=== PATIENT | male | born 1940 | race Caucasian/White ===

== ENCOUNTER 2018-02-06 10:40 | Day surgery (SDC) | payer MEDICARE, OTHER ==
[~2018-02-06] VITALS: Ht 177.8 cm; Wt 79.3 kg
[~2018-02-06 10:40] MED LIST: ACID REDUCER20 MG PO; ASPI81EC; ATOR20 PO; ATOR40TA; Aspirin EC81 MG PO; CLOP75; DOCU100 PO; HYDACE5 PO; LEVSOD75 PO; LISI5 PO; LOW DOSE ASPIRI81 MG PO; METO25; METO25ER; METO50; NAPR550 PO; NITR.4SL SL; PRED10 PO
== END 2018-02-06 12:45 | disposition home or self-care (01) ==
LOC: ORSCSDS 10:40
PROVIDERS: Internal Medicine Gastroenterology
PROC: 0DJ08ZZ Inspection of Upper Intestinal Tract, Via Natural or Artificial Opening Endoscopic (ICD-10-PCS; principal; 2018-02-06 12:00)
DX: R12 Heartburn (principal); K44.9 Diaphragmatic hernia without obstruction or gangrene; Z99.81 Dependence on supplemental oxygen; I25.2 Old myocardial infarction; I10 Essential (primary) hypertension; I25.10 Atherosclerotic heart disease of native coronary artery without angina pectoris; J84.9 Interstitial pulmonary disease, unspecified; Z87.891 Personal history of nicotine dependence; Z79.82 Long term (current) use of aspirin; Z79.899 Other long term (current) drug therapy
CPT/HCPCS: J2250; J7120

== ENCOUNTER → 2019-04-04 | Outpatient (CLI) | payer MEDICARE, OTHER | END | disposition home or self-care (01) | LOC: LAB SHORT 07:44 → PLD 07:44 | DX: L90.5 Scar conditions and fibrosis of skin (principal) | CPT/HCPCS: 88305 ==

== ENCOUNTER 2019-06-17 10:59 | Inpatient (IN) | payer OTHER, MEDICARE ==
[~2019-06-17] VITALS: Ht 177.8 cm; Wt 71.7 kg
[2019-06-17] MEDS ORDERED: GABAPENTIN600 MG PO (11:08)
[2019-06-17] MEDS ORDERED: OMEP20ER PO (11:08)
[2019-06-17] MEDS ORDERED: Mobic15 MG PO (11:09)
[2019-06-17] MEDS ORDERED: Bentyl20 MG (11:09)
[2019-06-17] MEDS ORDERED: EUTHYROX100 MC1 PO (11:09)
[2019-06-17 11:25] LABS: BASOPHILS ABSOLUTE AUTO 0.01 K/mm3 (0.00-0.23); BASOPHILS PERCENT AUTO 0 % (0-2); EOSINOPHILS ABSOLUTE AUTO 0.16 K/mm3 (0.00-0.68); EOSINOPHILS PERCENT AUTO 4 % (0-6); Hematocrit 29.4 % (37.0-53.0); Hemoglobin 8.9 g/dL (13.5-17.5); IMMATURE GRAN ABSOLUTE AUTO 0.02 K/mm3 (0.00-0.10); IMMATURE GRAN PERCENT AUTO 0 % (0-1); LYMPHOCYTES PERCENT AUTO 27 % (21-46); MONOCYTES ABSOLUTE AUTO 0.65 K/mm3 (0.16-1.47); MONOCYTES PERCENT AUTO 14 % (4-13); Mean Corpuscular HGB 31.1 pg (26.0-34.0); Mean Corpuscular HGB Conc 30.3 g/dL (31.5-36.5); Mean Corpuscular Volume 103 fL (80-100); Mean Platelet Volume 10.1 fL (9.1-12.4); NEUTROPHILS ABSOLUTE AUTO 2.47 K/mm3 (1.96-9.15); NEUTROPHILS PERCENT AUTO 55 % (41-73); Platelet Count 132 K/mm3 (150-400); RDW Coefficient Variation 15.5 % (11.7-14.2); Red Blood Cell Count 2.86 M/mm3 (4.30-5.90); White Blood Cell Count 4.51 K/mm3 (4.00-11.30)
[2019-06-17 11:43] LABS: Albumin, Blood 2.3 g/dL (3.4-5.0); Albumin/Globulin Ratio 0.4 (0.8-1.8); Bilirubin, Total 0.7 mg/dL (0.1-1.0); Bun/Creatinine Ratio 14.8 (12.0-20.0); Creatinine, Blood 1.35 mg/dL (0.60-1.20); Globulin, Blood 6.4 g/dL (2.2-4.0); Potassium, Blood 3.7 mmol/L (3.5-5.5); Total Protein, Blood 8.7 g/dL (6.4-8.2); Troponin I 0.208 ng/mL (0.000-0.040)
[2019-06-17 13:44] LABS: Percent Saturation 19.2 % (20.0-50.0)
--- NOTE | 2019-06-17 13:55 | NUR ---
REPORT RECEIVED FROM ANAHY BROWNING.
--- NOTE | 2019-06-17 14:07 | NUR ---
NOTIFIED BY MACHINE LACER THAT PT IS GOING TO BE TAKEN CARE OF BY ANAHY BERNARDO. DISCUSSED WITH TOVA. TOVA TO CALL ER NURSE FOR REPORT.
--- NOTE | 2019-06-17 18:13 | NUR ---
AMIODORONE PO CONFIRMED WITH PHARMACY THAT AMIODORONE PILLS ARE CRUSHABLE. CONTINUE POT.
--- NOTE | 2019-06-17 18:45 | NUR ---
HIGH HEART RATE PT DEVEOPED A HEART RATE 140 BPM. AFIB NOTED ON TELEL MONITOR. PT SITTING ONT HE SIDE OF THE BED EATING DINNER. ASYMPTOMATIC. BP STABLE. NO DIZZINESS NOTED. CALLED DR LAW. ORDERS RECEIVED. CONTINUE POT.
--- NOTE | 2019-06-17 21:50 | NUR ---
CARE ASSUMPTION / CONVERT TO NSR PT A&O X4. VSS. PT CONVERTED FROM AFIB TO NSR, HR 70's @ 1931. CONVERSION STRIP PRINTED AND PLACED IN CHART. SPO2 > 92% ON RA. WILL CONTINUE TO MONITOR AND PROVIDE CARE.
[2019-06-18 00:09] LABS: Stool Occult Blood Guaiac 1 Neg (Neg)
--- NOTE | 2019-06-18 06:25 | NUR ---
SHIFT SUMMARY PT A&O X4. VSS. PT CONVERTED FROM AFIB TO NSR, HR 70's @ 1931 THIS SHIFT. SPO2 > 92% ON RA. NO FURTHER EVENTS/CHANGES THIS SHIFT. EKG DONE THIS AM. WILL CONTINUE TO MONITOR AND PROVIDE CARE UNTIL REPORT OFF TO DAY SHIFT RN.
[2019-06-18 07:56] LABS: BASOPHILS ABSOLUTE AUTO 0.02 K/mm3 (0.00-0.23); BASOPHILS PERCENT AUTO 1 % (0-2); EOSINOPHILS ABSOLUTE AUTO 0.11 K/mm3 (0.00-0.68); EOSINOPHILS PERCENT AUTO 3 % (0-6); Hematocrit 26.4 % (37.0-53.0); IMMATURE GRAN ABSOLUTE AUTO 0.02 K/mm3 (0.00-0.10); IMMATURE GRAN PERCENT AUTO 1 % (0-1); LYMPHOCYTES ABSOLUTE AUTO 0.92 K/mm3 (0.84-5.20); LYMPHOCYTES PERCENT AUTO 29 % (21-46); MONOCYTES ABSOLUTE AUTO 0.64 K/mm3 (0.16-1.47); MONOCYTES PERCENT AUTO 20 % (4-13); Mean Corpuscular HGB 31.1 pg (26.0-34.0); Mean Corpuscular HGB Conc 30.3 g/dL (31.5-36.5); Mean Corpuscular Volume 103 fL (80-100); Mean Platelet Volume 10.2 fL (9.1-12.4); NEUTROPHILS ABSOLUTE AUTO 1.49 K/mm3 (1.96-9.15); NEUTROPHILS PERCENT AUTO 47 % (41-73); Platelet Count 132 K/mm3 (150-400); RDW Coefficient Variation 15.6 % (11.7-14.2); RDW Standard Deviation 57.4 fL (35.1-46.3); Red Blood Cell Count 2.57 M/mm3 (4.30-5.90)
--- NOTE | 2019-06-18 08:03 | NUR ---
REPORT REC'D FROM PAULO HIGGINBOTHAM. PT LYING IN BED A&O. DENIES ANY NEEDS AT THIS TIME. COFFEE PROVIDED REQUESTED EARLIER 07/04 DECAF 07/04 REG. VSS. ASSESSMENT NOTED CALL LIGHT IN REACH.
[2019-06-18 08:09] LABS: Albumin, Blood 2.2 g/dL (3.4-5.0); Anion Gap 8 mmol/L (6-16); Blood Urea Nitrogen 26 mg/dL (8-24); Bun/Creatinine Ratio 14.7 (12.0-20.0); CO2, Blood 23 mmol/L (21-32); Chloride, Blood 106 mmol/L (98-108); Creatinine, Blood 1.77 mg/dL (0.60-1.20); Glomerular Filtration Rate 40 (60-); Glucose, Blood 97 mg/dL (70-99); Phosphorus, Blood 3.3 mg/dL (2.5-4.9); Potassium, Blood 3.8 mmol/L (3.5-5.5); Sodium, Blood 137 mmol/L (136-145)
--- NOTE | 2019-06-18 14:41 | NUR ---
REPORT CALLED TO TR HIGGINBOTHAM ON MEDICAL FLOOR. PT TRANSFERRING TO [facility] 355 VIA .
--- NOTE | 2019-06-18 16:14 | NUR ---
Spiritual care visit conducted. Patient is sitting on a chair and alert. Patient openly shares about his medical history, his family and then he shares the pain of the loss of his a few months ago. He then told me many stories of how they met and what she was like and about the loss of motivation to continue on without her. We talk about celebrating her life, about finding meaning and identity and looking for ways to re-engage in life. I listen empathically, reinforce helpful attitudes and practices and provide grief support, companionship and prayer. Patient responds well and shows signs of an elevated mood. I will continue to remain available to patient.
--- NOTE | 2019-06-18 17:56 | NUR ---
RECEIVED TO ROOM 355 BY W/C FROM [facility] AT 1448. TELE ON. WHEN VERIFIED WITH THE AIR POLLUTION COMPLIANCE INSPECTOR, READING NSR 72. HE IS UP AD GIBRAN IN THE ROOM. HE DOES NOT WANT TO JUST SIT ON THE BED. HE SAYS HIS APPETITE IS POOR. CONSULTED WITH HIM. HE HAS TURNED DOWN ANY ENDOSCOPIES AT THIS TIME. HIS NEIGHBOR AND HER SON BROUGHT HIM IN HIS CLOTHING AND IS LOOKING AFTER HIS HOUSE AND HIS DOG FOR HIM. HE HAS NO COMPLAINTS.
[2019-06-19 04:40] LABS: BASOPHILS ABSOLUTE AUTO 0.02 K/mm3 (0.00-0.23); BASOPHILS PERCENT AUTO 0 % (0-2); EOSINOPHILS ABSOLUTE AUTO 0.14 K/mm3 (0.00-0.68); EOSINOPHILS PERCENT AUTO 3 % (0-6); Hematocrit 25.3 % (37.0-53.0); IMMATURE GRAN ABSOLUTE AUTO 0.02 K/mm3 (0.00-0.10); IMMATURE GRAN PERCENT AUTO 0 % (0-1); LYMPHOCYTES ABSOLUTE AUTO 1.23 K/mm3 (0.84-5.20); LYMPHOCYTES PERCENT AUTO 27 % (21-46); MONOCYTES ABSOLUTE AUTO 0.76 K/mm3 (0.16-1.47); MONOCYTES PERCENT AUTO 17 % (4-13); Mean Corpuscular HGB Conc 31.6 g/dL (31.5-36.5); Mean Platelet Volume 9.8 fL (9.1-12.4); NEUTROPHILS ABSOLUTE AUTO 2.41 K/mm3 (1.96-9.15); NEUTROPHILS PERCENT AUTO 53 % (41-73); Platelet Count 147 K/mm3 (150-400); RDW Coefficient Variation 15.4 % (11.7-14.2); RDW Standard Deviation 54.6 fL (35.1-46.3); Red Blood Cell Count 2.58 M/mm3 (4.30-5.90); White Blood Cell Count 4.58 K/mm3 (4.00-11.30)
[2019-06-19 04:42] LABS: Mean Corpuscular Volume 98 fL (80-100)
[2019-06-19 04:58] LABS: Bun/Creatinine Ratio 15.8 (12.0-20.0); Calcium, Blood 7.8 mg/dL (8.5-10.1); Creatinine, Blood 1.96 mg/dL (0.60-1.20); Magnesium, Blood 1.5 mg/dL (1.6-2.4); Potassium, Blood 4.9 mmol/L (3.5-5.5)
--- NOTE | 2019-06-19 05:01 | NUR ---
SHIFT SUMMARY: PT IS ALERT AND ORIENTED. PT IS CALM AND COOPERATIVE WITH CARE. PT CALLS APPROPRIATELY. PT IS INDEPENDENT IN THE ROOM. PT DENIES PAIN, NAUSEA, VOMITING, AND SOB. PT SLEPT MUCH OF THE NIGHT WHEN NOT DISTURBED. NSR ON TELE. NO ACUTE CHANGES OR COMPLICATIONS THIS SHIFT. BED IN LOW POSITION, CALL LIGHT WITHIN REACH. WILL REPORT TO DAY NURSE.
--- NOTE | 2019-06-19 16:07 | NUR ---
PT STARTED BOWEL PREP
--- NOTE | 2019-06-19 17:04 | NUR ---
SUMMARY PT RESTING IN BED WATCHING TV, HAS BEEN PLEASANT AND COOPERATIVE WITH CARE, DR MICHEL SAW THE PT FIRST THING THIS MORNING, AND PLAN IS TO SCOPE THE PT TOMORROW AFTER NOON, PT TAKING BOWEL PREP NOW AND IS ON CLEAR LIQUIDS, VSS, NO ACUTE CHANGES, WILL CONT TO MONITOR
--- NOTE | 2019-06-19 18:22 | NUR ---
TELE NOTIFIED ME THE PT IS BACK IN AFIB, 100'S, PT DENIES ANY CHEST PAIN OR PRESSURE
[2019-06-20 05:20] LABS: Source, Urine Clean Catch
[2019-06-20 05:24] LABS: Appearance, Urine Clear (Clear); Bilirubin, Urine Neg (Neg); Blood, Urine 5+ (Neg); Color, Urine Yellow (P-Yellow); Glucose Qualitative, Urine Neg (Neg); Ketones, Urine Neg (Neg); Leukocyte Esterase, Urine Neg (Neg); Nitrite, Urine Neg (Neg); Protein, Urine 2+ (Neg); Urobilinogen, Urine NORM (Normal)
[2019-06-20 05:39] LABS: Bacteria Rare /hpf; Red Blood Cells, Urine 25-50 /hpf (0-2); Squamous Epithelial Cells Not Seen /hpf (Few)
--- NOTE | 2019-06-20 06:41 | NUR ---
SHIFT SUMMARY: 79 Y/O MALE RESTED COMFORTABLY ALL SHIFT WHILE PERFORMING BOWEL PREP WITH LIQUID BROWN STOOL NOTED; PT HAS RESUMED TAKING GO-LYTE THIS AM; PT DENIES PAIN OR NAUSEA; ALERT AND ORIENTED X 4; HAPPY AND COOPERATIVE; SCHEDULED TENTATIVELY FOR COLONOSCOPY TODAY; BED LOW POSITION WITH CALL LIGHT AT SIDE.
--- NOTE | 2019-06-20 15:20 | NUR ---
PT BROUGHT TO [facility] VIA GURNEY FROM MEDICAL FLOOR ROOM. History, Chart, Medications and Allergies reviewed before start of procedure.Patient confirms NPO status and agrees with scheduled surgery. Patient states colon prep results clear.Lungs clear T/O to Auscultation. 20G IV IN LEFT FOREARM IN PLACE UPON ARRIVAL TO [facility]. PATENT, FLUSHES EASILY. CURENTLY INFUSING.
--- NOTE | 2019-06-20 16:15 | NUR ---
06/20/19 1615 Leroy Morocho Bite Block PlacedPATIENT DETERMINED TO BE ASA APPROPRIATE FOR PROPOFOL SEDATION PRIOR TO START OF PROCEDURE BY 3-LEAD EKG REVIEWED WITH PHYSICIAN PRIOR TO START OF PROCEDURE.Patient to ENDO 1History, Chart, Medications and Allergies reviewed before start of procedure.MONITOR INTACT WITH CONTINUOUS PULSE OXIMETRY AND INTERMITTENT BP.O2 VIA N/C INTACT THROUGHOUT SEDATION/PROCEDURE.
--- NOTE | 2019-06-20 17:37 | NUR ---
SHIFT SUMMARY. PT COMPLETED COLON PREP AND WENT FOR UPPER AND LOWER SCOPE. PT RETURNED, VS STABLE. PT DENIES ANY ABD PAIN AT THIS TIME. PT HAS BEEN IND IN THE ROOM. PT'S FAMILY HAS BEEN UPDATED PER THE PT'S REQUEST. PT HAS BEEN UP AND WALKING THE HALLS. PT'S POST OP VITALS HAVE BEEN STABLE. CALL LIGHT IN REACH, BED IS LOCKED AND LOW WILL CONTINUE TO MONITOR.
--- NOTE | 2019-06-20 19:56 | NUR ---
MARKETING DATABASE ANALYST REPORTS PATIENT CONVERTED FROM A-FIB 118 TO NSR 73.
--- NOTE | 2019-06-21 03:43 | NUR ---
SHIFT SUMMARY PATIENT HAD NO ACUTE CHANGES OBSERVED. AXO X3 AND INDEPENDENT IN ROOM AND CANCHOLA. PIV REMAINS INTACT. CALL CENTER SUPPORT CONSULTANT REPORTED PATIENT CONVERTED FROM A-FIB 118 TO SR 73. VSS/AFEBRILE. DENIES PAIN, SOB, AND N/V. COOPERATIVE WITH CARE. CALL LIGHT IN REACH. BED IN LOWEST POSITION. WILL CONTINUE TO MONITOR UNTIL DAY SHIFT NURSE ASSUMES CARE.
[2019-06-21 05:19] LABS: Hematocrit 28.1 % (37.0-53.0); Hemoglobin 8.5 g/dL (13.5-17.5)
[2019-06-21 05:40] LABS: Anion Gap 9 mmol/L (6-16); Blood Urea Nitrogen 31 mg/dL (8-24); Bun/Creatinine Ratio 15.7 (12.0-20.0); CO2, Blood 24 mmol/L (21-32); Calcium, Blood 7.9 mg/dL (8.5-10.1); Chloride, Blood 100 mmol/L (98-108); Creatinine, Blood 1.98 mg/dL (0.60-1.20); Glomerular Filtration Rate 35 (60-); Glucose, Blood 78 mg/dL (70-99); Potassium, Blood 4.5 mmol/L (3.5-5.5); Sodium, Blood 133 mmol/L (136-145)
[2019-06-21] MEDS ORDERED: Bumetanide1 MG PO (14:03)
[2019-06-21] MEDS ORDERED: Amiodarone HCl200 MG PO (14:03)
[2019-06-21 15:07] LABS: A/G RATIO 0.5 (0.7-1.7); ALBUMIN 2.6 g/dL (2.9-4.4); ALPHA-1-GLOBULIN 0.4 g/dL (0.0-0.4); ALPHA-2-GLOBULIN 0.9 g/dL (0.4-1.0); GAMMA GLOBULIN 3.3 g/dL (0.4-1.8); GLOBULIN, TOTAL 5.5 g/dL (2.2-3.9); IMMUNOGLOBULIN A, QN, SERUM 863 mg/dL (61-437); IMMUNOGLOBULIN G, QN, SERUM 3271 mg/dL (700-1600); IMMUNOGLOBULIN M, QN, SERUM 67 mg/dL (15-143); M-SPIKE Not Observed g/dL (Not Observed); PROTEIN, TOTAL, SERUM 8.1 g/dL (6.0-8.5)
--- NOTE | 2019-06-21 17:54 | NUR ---
SHIFT SUMMARY PT AWAKE DURING SHIFT REPORT THIS AM. DENIED NEEDS. INDEPENDENT IN RM AND TO BTHRM. PER REPORT, PT ADMITTED FOR A-FIB W/ RVR BUT CONVERTED TO SR DURING THE NIGHT. PT WITH HX OF CAD, A-FIB, CHF, CKD, AND ANEMIA. UPPER AND LOWER SCOPE DONE YESTERDAY. RENAL US DONE TODAY. D/C ORDERS PLACED AFTER RESULTS RETURNED. PT VERY PALE AND SOMEWHAT WEAK, BUT ABLE TO MANAGE ON HIS OWN. NO C/O. VP CLIENT SERVICES ASSISTED PT OUT TO CAR AT D/C.
== END 2019-06-21 15:05 | disposition home or self-care (01) | DRG 291 ==
LOC: ER 10:59 → MEDS 12:41 → PCU 12:41 → ICUW 14:34 → PCU 14:54 → MEDS 06-18 15:28
PROVIDERS: Emergency Medicine; Internal Medicine; Internal Medicine Cardiovascular Disease; Internal Medicine Gastroenterology; ADMIT Internal Medicine
PROC: 0DD68ZX Extraction of Stomach, Via Natural or Artificial Opening Endoscopic, Diagnostic (ICD-10-PCS; principal; 2019-06-20 12:00)
PROC: 0DDE8ZX Extraction of Large Intestine, Via Natural or Artificial Opening Endoscopic, Diagnostic (ICD-10-PCS; 2019-06-20 12:00)
DX: I13.0 Hypertensive heart and chronic kidney disease with heart failure and stage 1 through stage 4 chronic kidney disease, or unspecified chronic kidney disease (principal); I50.41 Acute combined systolic (congestive) and diastolic (congestive) heart failure; I25.10 Atherosclerotic heart disease of native coronary artery without angina pectoris; I25.2 Old myocardial infarction; Z95.1 Presence of aortocoronary bypass graft; Z87.891 Personal history of nicotine dependence; E03.9 Hypothyroidism, unspecified; I48.0 Paroxysmal atrial fibrillation; F43.21 Adjustment disorder with depressed mood; E88.09 Other disorders of plasma-protein metabolism, not elsewhere classified
CPT/HCPCS: 36415; 71046; 76770; 80048; 80053; 80069; 81001; 82272; 82607; 82728; 82746; 82784; 83540; 83550; 83605; 83735; 83880; 84145; 84165; 84484; 85014; 85018; 85025; 86334; 86850; 86900; 86901; 87040; 88305; 88342; 93005; 93010; 93306; 96361; 96374; 96375; 99285-25; C9113; G0103; J1650; J1940; J2704; J3420; J7030; J7120

== ENCOUNTER 2019-07-21 04:26 | Inpatient (IN) | payer OTHER, MEDICARE ==
[~2019-07-21] VITALS: Ht 172.7 cm; Wt 73.5 kg
[~2019-07-21 04:26] MED LIST changes: +Amiodarone HCl200 MG PO; +Bentyl20 MG; +Bumetanide1 MG PO; +EUTHYROX100 MC1 PO; +GABAPENTIN600 MG PO; +Mobic15 MG PO; +OMEP20ER PO
[2019-07-21 04:41] LABS: PCO2 Arterial 18.6 mmHg (35-45); PO2 Arterial 97.5 mmHg (80-100); pH Blood Arterial 7.48 (7.35-7.45)
[2019-07-21] MEDS ORDERED: POTA10T (04:44)
[2019-07-21] MEDS ORDERED: MELO7.5 PO (04:44)
[2019-07-21] MEDS ORDERED: TIOT18 INH (04:45)
[2019-07-21 04:46] LABS: BASOPHILS ABSOLUTE AUTO 0.03 K/mm3 (0.00-0.23); BASOPHILS PERCENT AUTO 1 % (0-2); EOSINOPHILS ABSOLUTE AUTO 0.16 K/mm3 (0.00-0.68); EOSINOPHILS PERCENT AUTO 3 % (0-6); Hematocrit 27.4 % (37.0-53.0); Hemoglobin 8.5 g/dL (13.5-17.5); IMMATURE GRAN PERCENT AUTO 2 % (0-1); LYMPHOCYTES ABSOLUTE AUTO 1.64 K/mm3 (0.84-5.20); LYMPHOCYTES PERCENT AUTO 26 % (21-46); MONOCYTES PERCENT AUTO 16 % (4-13); Mean Corpuscular HGB 31.5 pg (26.0-34.0); Mean Corpuscular Volume 102 fL (80-100); Mean Platelet Volume 9.4 fL (9.1-12.4); NEUTROPHILS ABSOLUTE AUTO 3.31 K/mm3 (1.96-9.15); NEUTROPHILS PERCENT AUTO 53 % (41-73); Platelet Count 219 K/mm3 (150-400); RDW Coefficient Variation 17.2 % (11.7-14.2); RDW Standard Deviation 63.4 fL (35.1-46.3); White Blood Cell Count 6.24 K/mm3 (4.00-11.30)
[2019-07-21 05:07] LABS: International Normalized Ratio 1.27; Prothrombin Time Results 13.4 Sec (9.7-11.5)
[2019-07-21 05:08] LABS: Alanine Aminotransfer (ALT/SGP 26 U/L (12-78); Albumin, Blood 2.3 g/dL (3.4-5.0); Albumin/Globulin Ratio 0.3 (0.8-1.8); Alk Phos 122 U/L (50-136); Anion Gap 17 mmol/L (6-16); Aspartate Aminotrans (AST/SGOT 37 U/L (12-37); Blood Urea Nitrogen 60 mg/dL (8-24); Bun/Creatinine Ratio 20.4 (12.0-20.0); CO2, Blood 17 mmol/L (21-32); Calcium, Blood 8.1 mg/dL (8.5-10.1); Chloride, Blood 98 mmol/L (98-108); Creatinine, Blood 2.94 mg/dL (0.60-1.20); Globulin, Blood 6.9 g/dL (2.2-4.0); Glomerular Filtration Rate 22 (60-); Glucose, Blood 66 mg/dL (70-99); Magnesium, Blood 2.1 mg/dL (1.6-2.4); Potassium, Blood 5.5 mmol/L (3.5-5.5); Sodium, Blood 132 mmol/L (136-145); Total Protein, Blood 9.2 g/dL (6.4-8.2); Troponin I <0.015 ng/mL (0.000-0.040)
[2019-07-21 06:25] LABS: D-Dimer, Quantitative 4.89 mg/L FEU (0.00-0.52)
[2019-07-21 08:25] LABS: Calcium, Ionized (POC) 1.16 mmol/L (1.10-1.46); Chloride (POC) 100 mmol/L (98-108); Creatinine (POC) 3.6 mg/dL (0.8-1.3); Glucose (ISTAT POC) 82 mg/dL (70-99); Hemoglobin (POC) 8.8 g/dL (13.5-17.5); Sodium (POC) 131 mmol/L (135-148); Total CO2 (POC) 19 mmol/L (21-32)
[2019-07-21 08:35] LABS: PCO2 Arterial 26.1 mmHg (35-45); PO2 Arterial 351 mmHg (80-100); pH Blood Arterial 7.38 (7.35-7.45)
[2019-07-21 09:50] LABS: Source, Urine Catheter
[2019-07-21 09:57] LABS: Appearance, Urine Hazy (Clear); Bilirubin, Urine Neg (Neg); Blood, Urine 4+ (Neg); Color, Urine Yellow (P-Yellow); Glucose Qualitative, Urine Neg (Neg); Ketones, Urine Neg (Neg); Leukocyte Esterase, Urine Neg (Neg); Nitrite, Urine Neg (Neg); Protein, Urine 3+ (Neg); Urobilinogen, Urine 1+ (Normal)
[2019-07-21 10:10] LABS: Red Blood Cells, Urine 25-50 /hpf (0-2)
[2019-07-21 10:11] LABS: Amorphous Heavy (0-Heavy); Bacteria Few /hpf; Granular Casts 0-2 /lpf (0); Squamous Epithelial Cells Not Seen /hpf (Few)
--- NOTE | 2019-07-21 10:20 | NUR ---
INTUBATION PROCEDURE: 1014-20MG IV ETOMIDATE GIVEN 1015-20MG IV ROCURONIUM GIVEN 1016-PT WAS INTUBATED, SIZE 7.5, 22 @ THE LIP
--- NOTE | 2019-07-21 11:00 | NUR ---
PT ADMITTED TO ICU FROM ER AT 0845. PT ARRIVED PALE, SOMEWHAT DIAPHORETIC, IN RESP DISTRESS WEARING NRB MASK, MINIMALLY RESPONSIVE, TOES CYANOTIC, MOTTLING TO KNEES AND LOWER EXT. PT OPENED EYES TO VOICE AND AND ATTEMPTED TO LISTEN BEFORE FALLING BACK TO SEE/ OR IN A DAZED STATE. RESP HIGH 40'S SHALLOW AND LABORED. LUNGS WITH CRACKLS T/O WORSE ON LEFT SIDE. DR MORA AT BEDSIDE SHORTLY AFTER ADMIT. BIPAP ATTEMPTED AT VARIES SETTINGS W/O IMPROVEMENT IN PT. LASIX GIVEN 40MG STAT W/O GOOD EFFECT. SMITH TEMP PROPE PLACED; 60CC DARK CLOUDY URINE W SEDIMENT; SAMPLE SENT TO LAB. PICC ORDERED D/T POOR PERIPHERAL ACCESS; NOT GOOD CANIDATE; VEINS SMALL AND COLLAPSED, DR MORA NOTIFIED. PT INTUBATED AT 1016. PT'S COLOR MUCH IMPROVED AFTER INTUBATION. AC 16,TV 450, PEEP 5, FIO2 35%. CENTRAL LINE PLACE TO RIGHT IJ AT 1030. PROPOFOL STARTED PRIOR TO CL AT 20MCG AND INCREASED TO 35MCG D/T AGITATION. LEVOPHED STARTED AT 5MCG SOON AFTER AND WAS INCREASED TO 6MCGS. PT REPOSITIONED WITH PILLOWS, ORAL CARE COMPLETED. CHEST XRAY COMFIRMED OGT, ETT, AND CL.
--- NOTE | 2019-07-21 13:05 | NUR ---
AT 1246 PT RHYTHM CHANGED TO 3RD DEGREE BLOCK W SIGNIFICANT 6SEC PAUSES. PT DID RETAIN FAINT PULSE T/O. DR MORA, 2 RT'S, AND MULTIPLE RN'S AT BEDSIDE, INCLUDING TRAINING ANALYST. CRASH CART AT BEDSIDE, PADS ON PT READY TO PACE IF NEEDED. DR SUMMERS AT BEDSIDE FOR CONSULT; PLAN IS TO PLACE TEMPORARY PACER. THE FOLLOWING MEDS WERE ADMINISTERED DURING INCIDENT PER DR MORA: 1247 ATROPINE 1MG, 1247 NAHCO3 1 AMP, 1248 EPI 1 AMP, 1250 NAHCO3 1 AMP, 1251 1AMP GERARDO GLUC. PROPOFOL PLACED ON HOLD DURING HEART BLOCK AND RESUMED AGAIN AT 1255 DUE TO INCREASED MOVEMENT IN PT W AGITATION. LEVOPHED AT 6MCG. RHYTHM VARIES BETWEEN MOBITZ 1 AND SINUS RHYTHM.
[2019-07-21 13:13] LABS: Troponin I 0.094 ng/mL (0.000-0.040)
--- NOTE | 2019-07-21 17:05 | NUR ---
ECHOCARDIOGRAM COMPLETED
[2019-07-21] MEDS ORDERED: CEPH500 PO (18:21)
[2019-07-21] MEDS ORDERED: FERSU300 PO (18:22)
[2019-07-21 20:50] LABS: Hemoglobin 7.9 g/dL (13.5-17.5); Mean Corpuscular HGB 32.2 pg (26.0-34.0); Mean Corpuscular HGB Conc 31.6 g/dL (31.5-36.5); Mean Corpuscular Volume 102 fL (80-100); Mean Platelet Volume 10.1 fL (9.1-12.4); Platelet Count 140 K/mm3 (150-400); RDW Coefficient Variation 17.4 % (11.7-14.2); RDW Standard Deviation 64.3 fL (35.1-46.3); Red Blood Cell Count 2.45 M/mm3 (4.30-5.90); White Blood Cell Count 13.76 K/mm3 (4.00-11.30)
--- NOTE | 2019-07-21 20:51 | NUR ---
PT TO MANAGER VISUAL AT 1330 FOR TEMP PACEMAKER FOLLOWING 3RD DEGREE HEART BLOCK AND LONG PAUSES. PT IN MANAGER VISUAL FOR APPROX 2HRS; SEE DR SUMMERS'S CATH REPORT. PROPOFOL INCREASED TO 65MCG DURING PROCEDURE D/T AGITATION AND MOVEMENT. TEMP PACER PLACED TO RIGHT FEM; LENGTH VARIFIED W DR SUMMERS TO BE 65CM. SHEATH AND WIRE COILED IN GROIN AND SANDWICHED IN BETWEEN GAUZE; OPSITE THEN PLACED OVER GAUZE. SHEATH MARKED AT THIGH WITH PEN THE 65CM MARTIN WERE HIDDEN UNDER GAUZE. PACER SET AT VV1 WITH A RATE OF 60 AND 1MV. CAPTURE WAS TESTED AND AQUIRED IN MANAGER VISUAL. PT'S HEART RATE REMAINED IN SINUS RHYTHM W WIDE BBB T/O REMAINDER OF SHIFT. LEVOPHED WAS TITRATED UP TO 10MCGS. PROPOFOL REMAINED AT 65MCGS. DR MORA CALLED AT 1700 TO REPORT ELEVATED LACTIC ACID. 2L NS BOLUS OVER 4HRS STARTED. BLOOD CX SENT. TMAX TODAY 101.8. PT IS AFEBRILE NOW. PT'S TWO SON'S AND NEIGHBOR/FOIL STAMP OPERATOR AT BEDSIDE AND GIVEN UPDATE. RODRIGUEZ HIGGINBOTHAM GIVEN REPORT AT 1900.
[2019-07-21 21:07] LABS: BAND PERCENT MAN 2 % (0-8); BASOPHILS ABSOLUTE MAN 0.13 K/mm3 (0.00-0.23); BASOPHILS PERCENT MAN 1 % (0-2); EOSINOPHILS PERCENT MAN 0 % (0-6); LYMPHOCYTES ABSOLUTE MAN 0.82 K/mm3 (0.84-5.20); LYMPHOCYTES PERCENT MAN 6 % (21-46); METAMYELOCYTE ABSOLUTE MAN 0.13 K/mm3 (0.00-0.00); METAMYELOCYTE PERCENT MAN 1 % (0-0); MONOCYTES ABSOLUTE MAN 1.78 K/mm3 (0.16-1.47); MONOCYTES PERCENT MAN 13 % (4-13); MYELOCYTE ABSOLUTE MAN 0.13 K/mm3 (0.00-0.00); MYELOCYTE PERCENT MAN 1 % (0-0); NEUTROPHILS ABSOLUTE MAN 10.73 K/mm3 (1.96-9.15); SEG NEUTROPHILS PERCENT MAN 76 % (41-73); TOTAL CELLS COUNTED 100
[2019-07-21 21:09] LABS: Troponin I 0.166 ng/mL (0.000-0.040)
[2019-07-21 21:14] LABS: Albumin/Globulin Ratio 0.4 (0.8-1.8); Bilirubin, Total 2.1 mg/dL (0.1-1.0); Bun/Creatinine Ratio 21.1 (12.0-20.0); Calcium, Blood 8.1 mg/dL (8.5-10.1); Creatinine, Blood 3.32 mg/dL (0.60-1.20); Globulin, Blood 5.7 g/dL (2.2-4.0); Potassium, Blood 5.3 mmol/L (3.5-5.5); Total Protein, Blood 7.7 g/dL (6.4-8.2)
--- NOTE | 2019-07-21 22:28 | NUR ---
[place] of Care: Care assumed at 1900hr. Patient intubated/sedated. Vent to AC- 16/450/5/305, O2-96-995, tolerating vent without difficulty. Minimal response to painful stimuli, positive planter reflexes. Propofol gtt decreased from 65 to 55 mcg/kg/min. Levophed gtt at 10mcg/min, BP stable. Patient receiving NS at 500ml/hr x2L, confirmed with Dr. Mancera that no maintenance fluids to be infused after x2L bolus. Central line to rt IJ patent and intact, infusing without difficulty. Temporary pacemaker to rt femoral vein in place, dressing CDI, markings on catheter covered with gauze under dressing, saran made on catheter and patient's skin by day shift RN, remains in correct place at this time. Stop-cock to temporary pacer turned to off position, syringe in place, with no air in syringe. Patient's intrinsic HR of 65-70's, sinus rhythm, back up pacer set to ventricle pace with 1mA at rate of 60. [place] cath in place, draining clear yellow urine, but minimal output, Dr. Mancera made aware, no new orders received. Will continue to monitor.
[2019-07-22 03:53] LABS: BASOPHILS ABSOLUTE AUTO 0.03 K/mm3 (0.00-0.23); BASOPHILS PERCENT AUTO 0 % (0-2); EOSINOPHILS PERCENT AUTO 0 % (0-6); Hematocrit 25.5 % (37.0-53.0); Hemoglobin 7.8 g/dL (13.5-17.5); IMMATURE GRAN ABSOLUTE AUTO 0.65 K/mm3 (0.00-0.10); IMMATURE GRAN PERCENT AUTO 5 % (0-1); LYMPHOCYTES ABSOLUTE AUTO 2.08 K/mm3 (0.84-5.20); LYMPHOCYTES PERCENT AUTO 15 % (21-46); MONOCYTES PERCENT AUTO 16 % (4-13); Mean Corpuscular HGB 31.5 pg (26.0-34.0); Mean Corpuscular HGB Conc 30.6 g/dL (31.5-36.5); Mean Corpuscular Volume 103 fL (80-100); NEUTROPHILS ABSOLUTE AUTO 9.12 K/mm3 (1.96-9.15); NEUTROPHILS PERCENT AUTO 65 % (41-73); Platelet Count 126 K/mm3 (150-400); RDW Coefficient Variation 17.5 % (11.7-14.2); RDW Standard Deviation 65.5 fL (35.1-46.3); Red Blood Cell Count 2.48 M/mm3 (4.30-5.90); White Blood Cell Count 14.08 K/mm3 (4.00-11.30)
[2019-07-22 04:16] LABS: Albumin, Blood 1.9 g/dL (3.4-5.0); Albumin/Globulin Ratio 0.3 (0.8-1.8); Alk Phos 112 U/L (50-136); Anion Gap 14 mmol/L (6-16); Bilirubin, Total 2.3 mg/dL (0.1-1.0); Blood Urea Nitrogen 74 mg/dL (8-24); Bun/Creatinine Ratio 21.6 (12.0-20.0); CO2, Blood 19 mmol/L (21-32); Calcium, Blood 7.7 mg/dL (8.5-10.1); Chloride, Blood 102 mmol/L (98-108); Creatinine, Blood 3.42 mg/dL (0.60-1.20); Globulin, Blood 5.6 g/dL (2.2-4.0); Glomerular Filtration Rate 19 (60-); Glucose, Blood 99 mg/dL (70-99); Magnesium, Blood 2.1 mg/dL (1.6-2.4); Phosphorus, Blood 7.9 mg/dL (2.5-4.9); Potassium, Blood 5.3 mmol/L (3.5-5.5); Sodium, Blood 135 mmol/L (136-145); Total Protein, Blood 7.5 g/dL (6.4-8.2); Vancomycin, Random 15.4 ug/mL
[2019-07-22 04:36] LABS: Alanine Aminotransfer (ALT/SGP 2022 U/L (12-78); Aspartate Aminotrans (AST/SGOT 4357 U/L (12-37)
--- NOTE | 2019-07-22 06:06 | NUR ---
Shift Summary: Patient remains intubated/sedated throughout shift. Vent remains at AC 16/450/5/30%, tolerating vent without difficulty. VS remains stable, O2-96-99% throughout shift. Patient remains nearly unresponsive, slight withdrawal of hands with painful stimuli, some facial grimace and mouth movement with oral care. Propofol gtt decreased from 55 to 35mcg/kg/min late this shift. Will continue to decrease propofol gtt to attempt to rouse patient. Levophed gtt remained at 10mcg/min throughout shift, systolic BP low 100's, MAP's 60's-70's. Improved urine output this shift r/t previous shift, 550ml. Late this shift, patient's HR shortly decreasing to 60 for 6-10 beats, monitor alarms "accelerated ventricular" rate, as it is unable to display pacer spikes. Central line to rt IJ remains patent and intact, infusing without difficulty. Temporary pacemaker site (rt groin) remains wnl. Will continue to monitor until report to day shift RN.
--- NOTE | 2019-07-22 11:01 | NUR ---
Called by nursing to meet with family. Son had questions about advance directives and decision process. He manages his fathers affairs. Pt is retired and has VA benefits. Son states pt has been on steady decline since his . Brief review of advance directive and POLST. At this time son is staying the course and will discuss pt with cardiology on best path to take. Will follow upw with supportive care for son as decision maker for level of care. He has two sibling but states they are not good about making decisions. 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
--- NOTE | 2019-07-22 11:34 | NUR ---
AM NOTED... PT IS ON PROPOFOL AND WILL TITRATE DOWN ABLE TO BETTER ASSESS NEURO STATUS. PT IS NOT CURRENTLY RESPONDING TO MILD NOXIOUS STIMULI AND WILL FOLLOW. PT VSS ON LEVOPHED GTT NOTED. ONE SON IN TO VISIT AND DR JENKINS IN TO SEE PT, NO NEW ORDERS.
--- NOTE | 2019-07-22 18:15 | NUR ---
PT BP HAS REMAINED STABLE TODAY ON 9 AND 10MCG OF LEVOPHED. PT I/O NOTED. FAMILY HAS BEEN AT BED SIDE MOST OF THE DAY. PT WAS NOT RESPONDING TO VERBAL OR MILD NOXIOUS STIMULI EARLIER TODAY ON JUST 5MCG OF PROPOFOL BUT HE WAS SPONTAIIOUSLY MOVING UPPER EXT, TURNING HEAD, AND SOME NOTED MILD GAGING. PT HR REMAINS IN 70 RANGE MOST OF THIS AFTERNOON W/O PACING. PACER REMAINS INTACT WITH HR SET AT 60 AND MA-1. VENT SETTINGS REMAIN UNCHANGED.
--- NOTE | 2019-07-22 19:30 | NUR ---
ASSESSMENT/ASSUMED CARE PT INTUBATED AND ON [facility] VENT. SEDATED WITH PROPOFOL AT 20 MCQ/KG/MIN VIA CENTRAL LINE TO RIGHT IJ. PT RESPONDING TO PAINFUL STIMULI ONLY. OPENS EYES BRIEFLY AND MOVES UPPER EXT TO PAINFUL STIMULI. LUNGS CLEAR BUT DECREASED IN THE BASES. VENT SETTINGS AC 16 TV 450 PEEP 5 FIO2 INCREASED FROM 25% TO 30% DUE TO SPO2 AT 88-90%. ETT 7.5 22 AT LIP. SUCTIONED SCANT AMT BY RT, SAMPLE SENT. HEART RATE REGULAR IN THE 70'S SINUS RHYTHM. TRANSVENIOUS PACER TO LEFT GROIN, DRSG INTACT. SITE CLEAR. PACER SETTINGS RATE 60 MA 1. BP STABLE WITH LEVOPHED AT 10 MCQ/MIN. PEDAL PULSES VIA DOPPLER. BT+ ABD SOFT AND FLAT. OG WITH TUBE FEED PIVOT 1.5 AT 25 ML/HR H2O 30 ML Q4HR. RESIDUAL 10 ML FORMULA REFED. SMITH CATH PATENT DRAING YELLOW URINE. WOUND NOTED TO COCCYX, PHOTO TO BE TAKEN AND DRSG APPLIED. SOFT BILAT WRIST RESTRAINTS ON. TEMP 100.9, FAN ON PT AND BLANKET REMOVED.
--- NOTE | 2019-07-23 00:13 | NUR ---
REASSESSMENT PT CONT INTUBATED AND ON MECH VENT. NO VENT CHANGES. LUNGS CONT CLEAR BUT DECREASED IN THE BASES. TEMP DONW TO 98.9. HEART RATE IN THE 70'S SINUS RHYTHM. RESIDUAL 2 ML REFED. INCREASED TUBE FEED TO GOAL AT 40 ML/HR. ORAL CARE DONE AND PT REPOSITIONED TO KEEP OFF COCCYX. LEFT GROIN STABLE. BLOOD GLUCOSE 114, NO INSULIN GIVEN.
--- NOTE | 2019-07-23 03:26 | NUR ---
ELEVATED HEART RATE PT WENT INTO ACCELERATED JUNCTIONAL RHYTHM AROUND 0253, OBTAINED EKG AND CALLED DR ALVARES. RECEIVED ORDER FOR AMIODARONE BOLUS AND GTT.
[2019-07-23 03:40] LABS: BASOPHILS ABSOLUTE AUTO 0.02 K/mm3 (0.00-0.23); BASOPHILS PERCENT AUTO 0 % (0-2); EOSINOPHILS ABSOLUTE AUTO 0.04 K/mm3 (0.00-0.68); EOSINOPHILS PERCENT AUTO 1 % (0-6); Hematocrit 25.4 % (37.0-53.0); IMMATURE GRAN ABSOLUTE AUTO 0.33 K/mm3 (0.00-0.10); IMMATURE GRAN PERCENT AUTO 4 % (0-1); LYMPHOCYTES ABSOLUTE AUTO 1.04 K/mm3 (0.84-5.20); LYMPHOCYTES PERCENT AUTO 13 % (21-46); MONOCYTES ABSOLUTE AUTO 1.17 K/mm3 (0.16-1.47); MONOCYTES PERCENT AUTO 14 % (4-13); Mean Corpuscular HGB 31.7 pg (26.0-34.0); Mean Corpuscular HGB Conc 31.5 g/dL (31.5-36.5); Mean Corpuscular Volume 101 fL (80-100); Mean Platelet Volume 9.6 fL (9.1-12.4); NEUTROPHILS ABSOLUTE AUTO 5.54 K/mm3 (1.96-9.15); NEUTROPHILS PERCENT AUTO 68 % (41-73); Platelet Count 126 K/mm3 (150-400); RDW Coefficient Variation 17.3 % (11.7-14.2); RDW Standard Deviation 63.9 fL (35.1-46.3); Red Blood Cell Count 2.52 M/mm3 (4.30-5.90); White Blood Cell Count 8.14 K/mm3 (4.00-11.30)
--- NOTE | 2019-07-23 04:00 | NUR ---
REASSESSMENT PT CONT INTUBATED AND ON MECH VENT. NO VENT CHANGES. LUNGS CONT CLEAR BUT DECREASED IN THE BASES. RT SUCTIONED THICK YELLOW SECRECTIONS VIA ET TUBE. HEART RATE 110-120. AMIODARONE BOLUS COMPLETE AND GTT STARTED AT 1MG/HR FOR 6HRS. BP DECREASED LEVOPHED INCREASED TO 12MCQ/MIN. CXR DONE AND PT REPOSITIONED. ORAL CARE DONE.
[2019-07-23 04:04] LABS: Albumin, Blood 1.7 g/dL (3.4-5.0); Albumin/Globulin Ratio 0.3 (0.8-1.8); Alk Phos 122 U/L (50-136); Anion Gap 9 mmol/L (6-16); Bilirubin, Total 2.2 mg/dL (0.1-1.0); Blood Urea Nitrogen 80 mg/dL (8-24); Bun/Creatinine Ratio 20.3 (12.0-20.0); CO2, Blood 24 mmol/L (21-32); Calcium, Blood 7.5 mg/dL (8.5-10.1); Chloride, Blood 104 mmol/L (98-108); Creatinine, Blood 3.94 mg/dL (0.60-1.20); Globulin, Blood 5.5 g/dL (2.2-4.0); Glomerular Filtration Rate 16 (60-); Glucose, Blood 147 mg/dL (70-99); Magnesium, Blood 2.1 mg/dL (1.6-2.4); Phosphorus, Blood 5.8 mg/dL (2.5-4.9); Sodium, Blood 137 mmol/L (136-145); Total Protein, Blood 7.2 g/dL (6.4-8.2); Vancomycin, Random 20.9 ug/mL
[2019-07-23 04:20] LABS: Alanine Aminotransfer (ALT/SGP 2079 U/L (12-78); Aspartate Aminotrans (AST/SGOT 3787 U/L (12-37)
[2019-07-23 05:27] LABS: PO2 Arterial 78.9 mmHg (80-100); pH Blood Arterial 7.41 (7.35-7.45)
--- NOTE | 2019-07-23 06:25 | NUR ---
SHIFT SUMMARY PT CONT INTUBATED AND ON [facility] VENT. CURRENT VENT SETTINGS AC 16 TV 450 PEEP 5 FIO2 30%. LUNGS REMAIN CLEAR BUT DECREASED IN THE BASES. INCREASED THICK YELLOW SECRECTIONS SUCTIONED VIA ET TUBE DURING THE NIGHT. HEART RATE INCREASED TO 110-120 AT 0300 FROM 70'S. PT STARTED ON AMIODARONE BOLUS AND GTT. HEART RATE NOW 108. BP MANAGED WITH LEVOPHED. INCREASED LEVOPHED FROM 10 MCQ/MIN TO 14 MCQ/MIN AFTER HEART RATE INCREASED. TUBE FEED AT GOAL RATE OF 40 ML/HR WITH MIN RESIDUAL. PT TURNED SIDE TO SIDE DURING THE NIGHT DUE TO COCCYX BREAKDOWN. PHOTO DONE AND DRSG APPLIED FOR PROTECTION. BILAT WRIST RESTRAINTS ON. REPORT TO ON COMING NURSE
--- NOTE | 2019-07-23 08:46 | NUR ---
PT MINIMALLY RESPONSIVE TO NOXIOUS STIMULT, GRIMISE, MOVING HEAD, SL SHOULDER SHRUG. PACER INTACT AND SITE STABLE. DR SUMMERS IN TO VIEW [address] TO INTERMITTENT PACED AND NSR, SEE STRIPS. FAMILY IN ROOM AND UPDATED TO CHANGED OVER NOC.
--- NOTE | 2019-07-23 13:31 | NUR ---
LEVOPHED GTT IS CURRENTLY 11 MCG WITH VASOPRESSIN AND PT IS TOLERATING THIS CHANGE CURRENTLY. PT REMAINS ON LOW PROPOFOL, WILL GRIMISE WITH TURNING AND ORAL CARE BUT NO OTHER ACTIVE RESPONSE.
--- NOTE | 2019-07-23 17:45 | NUR ---
PT IS RESTING ON CURRENT IV OF PROPOFOL 15 MCG, AMIODAORNE 0.5 MG/MIN, LEVOPHED 10MCG, VASOPRESSIN 0.04 UNITS /MIN., NS TKO. PT HAS NOT CHANGED NEUROLOGICALLY, VS REMAIN ADIQUATE NOTED. VENT SETTINGS AND RESP STATUS STABLE. I/O NOTED. CONTINUES TO TOLERATE TF AND CBG NOTED. PACER INTACT AND UNCHANGED. PT REMAINS IN ALTERNATING PACED AND A. FLUTTER AT 2 TO 4 FLUTTERS PER QRS AND AT GENERAL RATE REGARDLESS OF RHYTHUM IN 59-[address] ALVARES IN LATE IN SHIFT AND EVALUATE PT STATUS.
--- NOTE | 2019-07-23 18:47 | NUR ---
No family present at time of visit. Mr. Richardson wsa ventliated and non-responsive. Per chart, he is Worship. Audible prayer provided at bedside. I will remain available to pt and family.
--- NOTE | 2019-07-23 19:00 | NUR ---
ASSUMED CARE ASSUMED CARE OF PATIENT. REMAINS INTUBATED- AC 16, TV 450, PEEP 5, FIO2 30%. RESP RATE 20s. ETT 7.5, 22 AT LIP. SX MODERATE AMOUNT OF THICK BAKER SPUTUM. SEDATED WITH PROPOFOL @ 15MCG/KG/MIN. FACIAL GRIMACING NOTED WITH NOXIOUS STIMULI. WITHDRAWS EXTREMITIES TO STIMULI. LUIS, 6MM, SLUGGISH. BILATERAL SOFT WRIST RESTRAINTS IN PLACE TO PREVENT SELF-EXTUBATION. MONITOR SHOWS PACED RHYTHM, RATE 60. BP STABLE WITH LEVOPHED @ 10MCG/MIN AND VASOPRESSIN @ 0.04UNITS/MIN. AMIODARONE CONTINUES @ 0.5MG/MIN PER ORDER. TRANSVENOUS PACEMAKER TO RIGHT FEMORAL. RATE SET AT 60. OG WITH PIVOT 1.5 AT GOAL RATE OF 40CC/HR. SMITH PATENT AND DRAINING ZIGGY URINE. SKIN IS WARM, BUT CLAMMY. SEE SHIFT ASSESSMENT FOR FULL ASSESSMENT.
[2019-07-24 04:10] LABS: BASOPHILS ABSOLUTE AUTO 0.01 K/mm3 (0.00-0.23); BASOPHILS PERCENT AUTO 0 % (0-2); EOSINOPHILS PERCENT AUTO 0 % (0-6); Hematocrit 24.8 % (37.0-53.0); Hemoglobin 7.8 g/dL (13.5-17.5); IMMATURE GRAN ABSOLUTE AUTO 0.47 K/mm3 (0.00-0.10); IMMATURE GRAN PERCENT AUTO 5 % (0-1); LYMPHOCYTES ABSOLUTE AUTO 0.83 K/mm3 (0.84-5.20); LYMPHOCYTES PERCENT AUTO 9 % (21-46); MONOCYTES ABSOLUTE AUTO 0.92 K/mm3 (0.16-1.47); MONOCYTES PERCENT AUTO 10 % (4-13); Mean Corpuscular HGB 31.8 pg (26.0-34.0); Mean Corpuscular HGB Conc 31.5 g/dL (31.5-36.5); Mean Corpuscular Volume 101 fL (80-100); NEUTROPHILS ABSOLUTE AUTO 7.12 K/mm3 (1.96-9.15); NEUTROPHILS PERCENT AUTO 76 % (41-73); NRBC ABSOLUTE 0.02 K/mm3 (0.00-0.02); NRBC Auto 0.2 /100 WBC (0.0-0.2); Platelet Count 80 K/mm3 (150-400); RDW Coefficient Variation 17.2 % (11.7-14.2); RDW Standard Deviation 63.1 fL (35.1-46.3); Red Blood Cell Count 2.45 M/mm3 (4.30-5.90); White Blood Cell Count 9.35 K/mm3 (4.00-11.30)
[2019-07-24 04:32] LABS: Albumin, Blood 1.7 g/dL (3.4-5.0); Albumin/Globulin Ratio 0.3 (0.8-1.8); Alk Phos 122 U/L (50-136); Anion Gap 9 mmol/L (6-16); Bilirubin, Total 2.3 mg/dL (0.1-1.0); Blood Urea Nitrogen 84 mg/dL (8-24); Bun/Creatinine Ratio 22.2 (12.0-20.0); CO2, Blood 22 mmol/L (21-32); Calcium, Blood 7.9 mg/dL (8.5-10.1); Chloride, Blood 102 mmol/L (98-108); Creatinine, Blood 3.78 mg/dL (0.60-1.20); Globulin, Blood 5.9 g/dL (2.2-4.0); Glomerular Filtration Rate 17 (60-); Glucose, Blood 222 mg/dL (70-99); Magnesium, Blood 2.2 mg/dL (1.6-2.4); Phosphorus, Blood 5.4 mg/dL (2.5-4.9); Potassium, Blood 4.6 mmol/L (3.5-5.5); Sodium, Blood 133 mmol/L (136-145); Total Protein, Blood 7.6 g/dL (6.4-8.2)
[2019-07-24 04:48] LABS: Alanine Aminotransfer (ALT/SGP 1782 U/L (12-78); Aspartate Aminotrans (AST/SGOT 2374 U/L (12-37)
--- NOTE | 2019-07-24 06:21 | NUR ---
SHIFT SUMMARY NO ACUTE CHANGES. REMAINS INTUBATED- AC 16, TV 450, PEEP 5, FIO2 30%. RR 20s. CONTINUES WITH BAKER SECRETIONS. SEDATED WITH PROPOFOL @ 15MCG/KG/MIN. SHORT SEDATION VACATION GIVEN BETWEEN [id number]. PT GRIMACES WITH ORAL CARE/NOXIOUS STIMULI. WITHDRAWS MINIMALLY TO NOXIOUS STIMULI. MINIMAL SPONTANEOUS MOVEMENT NOTED IN EXTREMITIES. LUIS, 6MM, SLUGGISH. MONITOR SHOWS INTERMITTENT PACED RHYTHM AND ATRIAL FLUTTER, RATE 60s. TRANSVENOUS PACER IN PLACE (RIGHT FEMORAL). BP STABLE WITH LEVOPHED. LEVOPHED INFUSED BETWEEN 3-10MCG/MIN DURING SHIFT- NOW INFUSING @ 6MCG/MIN. VASOPRESSIN INFUSING AT 0.04 UNITS/MIN PER ORDER. AMIODARONE INFUSED AT 0.5MG/MIN UNTIL 0400 (18 HOURS TOTAL). NS TKO. RIJ PATENT AND DRSG C/D/I. OG WITH PIVOT 1.5 AT GOAL RATE OF 40CC/HR. OG RESIDUAL BETWEEN 5-100CC DURING NOC. SMITH PATENT AND DRAINING ZIGGY URINE. INCONTINENT OF LOOSE BROWN STOOL X 3. WILL REPORT TO DAY SHIFT RN WHEN AVAILABLE.
--- NOTE | 2019-07-24 08:00 | NUR ---
INITIAL ASSESSMENT PATIENT INTUBATED AND SEDATED. PROPOFOL INFUSING AT 15 MCG/ KG/ MINUTE. PATIENT RESPONDS TO NOXIOUS STIMULI WITH FACIAL GRIMACING. NO MOVEMENT OF EXTREMITIES NOTED. PATIENT AFEBRILE. NO SIGNS OF PAIN OR DISCOMFORT NOTED. PATIENT ON AC 16, TV 450, PEEP 5, 30% FIO2. LUNGS CLEAR IN UPPER LOBES, DIMINISHED IN LOWER LOBES. MODERATE AMOUNT OF THICK, LIGHT GREEN SPUTUM BEING SUCTIONED FROM ETT. PATIENT 100% PACED. TEMPORARY PACEMAKER IN PLACE- RATE OF 60, 1 MAMP OF OUTPUT. HR OF 60. BP STABLE ON PRESSORS. LEVOPHED INFUSING AT 6 MCG/ MINUTE, VASOPRESSIN AT 0.04 UNITS/ MINUTE, NS TKO. ABDOMEN SOFT, NONDISTENDE, WITH HYPERACTIVE BS NOTED. OG IN PLACE. PIVOT 1.5 TF INFUSING AT GOAL RATE OF 40 MLS/ HOUR WITH 30 ML WATER FLUSH Q4H. RESIDUAL OF 30 MLS OBTAINED AND REINSTILLED THIS AM. PATIENT IS HAVING LOOSE, INCONTINENT STOOLS. SMITH DRAINING DARK ZIGGY COLORED URINE. BRUISES NOTED TO BUES. PRESSURE ULCER TO COCCYX- MEPILEX C/D/I. R GROIN SITE WNL- NO BLEEDING, BRUISING OR HEMATOMA NOTED. SITE SOFT TO PALPATION. BED LOW, CALL LIGHT IN REACH. WILL CONTINUE TO MONITOR FREQUENTLY THROUGHOUT SHIFT.
--- NOTE | 2019-07-24 09:55 | NUR ---
DR. ALVARES IN ROOM TO SEE PATIENT. INFORMED THAT PATIENT HAS GAINED AROUND 10 POUNDS SINCE THE . INFORMED THAT BLOOD SUGARS HAVE BEEN ELEVATED. INFORMED THAT KIDNEY LABS INCREASING, LIVER LABS DECREASING, PLATELETS DECREASED AT 80, AND SODIUM LOW AT 133. DR. ALVARES INFORMED THAT SPUTUM CAME BACK POSITIVE FOR JUAQUIN ALBICANS.
--- NOTE | 2019-07-24 12:00 | NUR ---
PATIENT REMAINS INTUBATED. ON SEDATION VACATION. PATIENT IS RESPONDING TO SOME SIMPLE COMMANDS. PATIENT WEAK BUT ABLE TO MOVE ALL EXTREMITIES. PATIENT AFEBRILE. PATIENT SATTING 90% AND GREATER ON SPONTANEOUS PS 7/5, 30% FIO2. PATIENT REMAINS PACED. HR IN THE 60S. BP STABLE ON 1 MCG/ MINUTE OF LEVOPHED AND 0.04 UNITS/ MINUTE OF VASOPRESSIN. TF RESIDUAL OF 140 MLS OBTAINED AND REINSTILLED. TF PLACED ON HOLD FOR PENDING EXTUBATION. PATIENT CONTINUES TO HAVE LOOSE BMS. BLOOD SUGAR OF 215; COVERAGE GIVEN. SON, ERICK, CALLED AND INFORMED THAT PATIENT WILL BE EXTUBATED SHORTLY. ERICK STATED THAT HIS SON, JONES, WOULD BE HERE SOON. PATIENT DENIES PAIN AT THIS TIME. NO OTHER ACUTE CHANGES TO NOTE ON AT THIS TIME. WILL CONTINUE TO MONITOR.
--- NOTE | 2019-07-24 12:53 | NUR ---
PATIENT EXTUBATED AT 1250. PATIENT SATTING 90% AND GREATER ON 4 L NC. GRANDSON AT SIDE OF BED. NO COMPLAINTS AT THIS TIME. RESTRAINTS REMOVED.
--- NOTE | 2019-07-24 16:25 | NUR ---
PATIENT RESTING QUIETLY IN BED. PATIENT IS STARTING TO PICK AT GOWN AND BLANKETS. PATIENT COOPERATIVE FOR THE MOST PART. PATIENT ORIENTED ONLY TO SELF. PATIENT SATTING 90% AND GREATER 1 L NC. LUNGS ARE COARSE IN LEFT LUNG LOBES AND DIMINISHED IN LOWER LOBES. PATIENT REMAINS PACED. HR 59 TO 60. LEVOPHED AT 5 MCG/ MINUTE AND VASOPRESSIN REMAINS AT 0.04 UNITS/ MINUTE. OG REMOVED AND TF STOPPED WHEN PATIENT EXTUBATED. PATIENT HAS HAD 4 LOOSE STOOLS THIS SHIFT. NO OTHER ACUTE CHANGES TO NOTE ON AT THIS TIME. PATIENT DENIES PAIN. WILL CONTINUE TO MONITOR.
--- NOTE | 2019-07-24 18:49 | NUR ---
SHIFT SUMMARY PATIENT INTUBATED AND SEDATED AT BEGINNING OF SHIFT. PATIENT EXTUBATED AFTER LUNCH. PATIENT ALERT AND ORIENTED ONLY TO SELF. PATIENT HAS BEGAN PICKING AT GOWN AND BEDDING. PATIENT ANSWERS QUESTIONS WITH SHORT PHRASES OR YES/ NO. PATIENT FOLLOWS SOME SIMPLE COMMANDS. PATIENT WEAK BUT ABLE TO MOVE ALL EXTREMITIES. PATIENT HAS REMAINED AFEBRILE. PATIENT HAS NOT HAD ANY SIGNS OF PAIN THIS SHIFT. PATIENT HAS REMAINED SATTING 90% AND GREATER ON 1 L NC TO 6L NC AFTER EXTUBATION. L LOBES COARSE. PATIENT HR 59 TO 90S. PATIENT HAS REMAINED PACED BY TEMPORARY PACEMAKER. BP HAS REMAINED STABLE ON PRESSORS. LEVOPHED CURRENTLY AT 4 MCG/ MINUTE AND VASOPRESSIN AT 0.04 UNITS/ MINUTE. PATIENT HAD 5 LOOSE BMS THIS SHIFT. TF STOPPED THIS SHIFT WHEN EXTUBATED. PATIENT TO HAVE SPEECH EVAL TOMORROW AM. SMITH HAS DRAINED ADEQUATE AMOUNT OF DARK ZIGGY COLORED URINE. R GROIN SITE HAS REMAINED STABLE. PATIENT REPOSITIONED THROUGHOUT SHIFT. PT/OT ORDERED. PATIENT STARTED ON HSS SS INSULIN THIS SHIFT. PATIENT COVERED OT. PATIENT HAS NO SIGNS OF PAIN AT THIS TIME.
--- NOTE | 2019-07-24 19:00 | NUR ---
ASSUMED CARE ASSUMED CARE OF PATIENT. PT IS AWAKE AND ALERT. ORIENTED TO SELF ONLY. FOLLOWS SIMPLE COMMANDS. SPEECH IS SLOW AND GARBLED. VOICE IS HOARSE. MOVES ALL EXTREMITIES. PULLING ON SMITH CATHETER AND TRANSVENOUS PACEMAKER WIRE- BILATERAL SOFT WRIST RESTRAINTS INITIATED AT THIS TIME. MONITOR SHOWS PACED RHYTHM, RATE 60. BP STABLE WITH LEVOPHED @ 4MCG/MIN AND VASOPRESSIN @ 0.04UNITS/MIN. AFEBRILE. O2 6L NC- SATS 89-94%. RESPIRATIONS EVEN AND UNLABORED. SLIGHTLY TACHYPNEIC WITH EXERTION. OCCASIONAL MOIST COUGH. NPO AT THIS TIME. SMITH PATENT AND DRAINING ZIGGY URINE. RIJ SITE PATENT, DRSG C/D/I. RIGHT FEMORAL TRANSVENOUS PACEMAKER SITE SOFT, DRSG D/I. COLOR PALE. SKIN W/D AT THIS TIME. SEE SHIFT ASSESSMENT FOR FULL ASSESSMENT.
--- NOTE | 2019-07-24 20:45 | NUR ---
O2/CALL TO MD DR. ALVARES NOTIFIED OF INCREASING O2 REQUIREMENTS (NOW ON 9L OXYMIZER) AND LUNG SOUNDS. NEW ORDER RECEIVED FOR LASIX 40MG IV X 1.
[2019-07-25 04:01] LABS: Hematocrit 25.4 % (37.0-53.0); Hemoglobin 8.1 g/dL (13.5-17.5); Mean Corpuscular HGB Conc 31.9 g/dL (31.5-36.5); Mean Corpuscular Volume 100 fL (80-100); NRBC ABSOLUTE 0.06 K/mm3 (0.00-0.02); NRBC Auto 0.3 /100 WBC (0.0-0.2); Platelet Count 61 K/mm3 (150-400); RDW Coefficient Variation 17.4 % (11.7-14.2); RDW Standard Deviation 63.7 fL (35.1-46.3); Red Blood Cell Count 2.53 M/mm3 (4.30-5.90); White Blood Cell Count 23.12 K/mm3 (4.00-11.30)
[2019-07-25 04:20] LABS: BAND PERCENT MAN 5 % (0-8); BASOPHILS PERCENT MAN 0 % (0-2); EOSINOPHILS PERCENT MAN 0 % (0-6); LYMPHOCYTES ABSOLUTE MAN 0.92 K/mm3 (0.84-5.20); LYMPHOCYTES PERCENT MAN 4 % (21-46); MONOCYTES ABSOLUTE MAN 2.08 K/mm3 (0.16-1.47); MONOCYTES PERCENT MAN 9 % (4-13); MYELOCYTE ABSOLUTE MAN 0.46 K/mm3 (0.00-0.00); MYELOCYTE PERCENT MAN 2 % (0-0); NEUTROPHILS ABSOLUTE MAN 19.65 K/mm3 (1.96-9.15); SEG NEUTROPHILS PERCENT MAN 80 % (41-73); TOTAL CELLS COUNTED 100
[2019-07-25 04:22] LABS: Albumin, Blood 1.8 g/dL (3.4-5.0); Albumin/Globulin Ratio 0.3 (0.8-1.8); Alk Phos 113 U/L (50-136); Anion Gap 10 mmol/L (6-16); Bilirubin, Total 2.6 mg/dL (0.1-1.0); Blood Urea Nitrogen 101 mg/dL (8-24); Bun/Creatinine Ratio 27.6 (12.0-20.0); CO2, Blood 22 mmol/L (21-32); Chloride, Blood 104 mmol/L (98-108); Creatinine, Blood 3.66 mg/dL (0.60-1.20); Globulin, Blood 6.3 g/dL (2.2-4.0); Glomerular Filtration Rate 17 (60-); Glucose, Blood 107 mg/dL (70-99); Magnesium, Blood 2.4 mg/dL (1.6-2.4); Phosphorus, Blood 5.1 mg/dL (2.5-4.9); Potassium, Blood 4.4 mmol/L (3.5-5.5); Sodium, Blood 136 mmol/L (136-145); Total Protein, Blood 8.1 g/dL (6.4-8.2); Vancomycin, Random 19.5 ug/mL
[2019-07-25 04:28] LABS: Alanine Aminotransfer (ALT/SGP 1446 U/L (12-78); Aspartate Aminotrans (AST/SGOT 1477 U/L (12-37)
--- NOTE | 2019-07-25 04:38 | NUR ---
AIRVO PT WITH INCREASING O2 REQUIREMENTS. SATS 86% WITH 11L OXYMIZER. CHANGED TO AIRVO 50L, FIO2 84% AT THIS TIME. WILL CONTINUE TO MONITOR.
[2019-07-25 05:22] LABS: PCO2 Arterial 37.7 mmHg (35-45); PO2 Arterial 60.7 mmHg (80-100); pH Blood Arterial 7.36 (7.35-7.45)
--- NOTE | 2019-07-25 05:52 | NUR ---
BIPAP PT WITH INCREASING O2 REQUIREMENTS AND WORK OF BREATHING. CHNAGED FROM AIRVO TO BIPAP 12/10, FIO2 60% AT THIS TIME. PT TOLERATING.
--- NOTE | 2019-07-25 06:24 | NUR ---
SHIFT SUMMARY CONTINUES TO BE ORIENTED TO SELF AND TO FOLLOWING DIRECTIONS. OCCASIONALLY ORIENTED TO PLACE. COOPERATIVE WITH CARE. BILATERAL SOFT WRIST RESTRAINTS ON FROM [id number] D/T PT PULLING AT SMITH AND TRANSVENOUS PACEMAKER WIRE. PT IS NOT PULLING AT TUBES/LINES/WIRES THIS MORNING. DENIES C/O PAIN OR DISCOMFORT. O2 REQUIREMENTS HAVE INCREASED T/O NOC, MOVING FROM NC TO OXYMIZER TO AIRVO AND NOW TO BIPAP. PT IS CURRENTLY ON BIPAP 12/10, BUR 12, FIO2 50%. RR MID-20S. LUNGS ARE COARSE T/O WITH CRACKLES ON LEFT. WORK OF BREATHING HAS LESSENED WITH BIPAP. CONTINUES WITH MOIST COUGH. LEVOPHED INFUSED BETWEEN 4-7MCG/MIN TO KEEP MAP >60-65. NOW INFUSING @ 7MCG/MIN. VASOPRESSIN CONTINUES AT 0.04UNITS/MIN. TRANSVENOUS PACEMAKER IN PLACE TO RIGHT FEMORAL. MONITOR SHOWS PACED RHYTHM. REMAINED NPO T/O SHIFT. SMITH PATENT AND DRAINING ZIGGY URINE. INCONTINENT OF LOOSE STOOLS X 5 DURING SHIFT, BUT AMOUNT APPEARS TO BE LESS. MIRELA PATENT, DRSG C/D/I. WILL REPORT TO DAY SHIFT RN WHEN AVAILABLE.
--- NOTE | 2019-07-25 08:00 | NUR ---
INITIAL ASSESSMENT PATIENT RESTING QUIETLY IN BED, GRABBING AT GOWN AND PULLING AT BLANKET UPON ENTERING ROOM. PATIENT IRRITABLE AND UNCOOPERATIVE THIS AM. PATIENT CONFUSED. PATIENT ASKED IF HE COULD TELL NURSE HIS NAME AND HE STATED "NO". PATIENT ONLY ANSWERING QUESTIONS WITH YES AND NO ANSWERS. SPEECH GARBLED. PATIENT WEAK BUT ABLE TO MOVE ALL EXTREMITIES. PATIENT AFEBRILE. PATIENT DENIES PAIN. PATIENT SATTING 90% AND GREATER ON BIPAP SETTINGS 12/10, RATE OF 12, 50% FIO2. PATIENT PLACED ON 15 L OXYMIZER FOR VERY SHORT BREAK TO COMPLETE ORAL CARE. PATIENT DID DESATURATE INTO 80S. SMALL AMOUNT OF BLOOD NOTED IN MOUTH WITH ORAL CARE. PATIENT HAS WEAK, MOIST, NONPRODUCTIVE COUGH. SMALL AMOUNT OF THIN BLOOD SUCTIONED FROM BACK OF THROAT WITH YANKER WHEN PATIENT COUGHING THIS AM. LLL CLEAR, ALL OTHER LUNG LOBES COARSE TO AUSCULTATION. PATIENT HAS TEMPORARY PACEMAKER IN PLACE- VVI, RATE OF 60, 1 MAMP OUTPUT. HR 60S TO 1-TEENS THIS AM. BP STABLE ON LEVOPHED AT 7 MCG/ MINUTE AND VASOPRESSIN AT 0.04 UNITS/ MINUTE. PATIENT CONTINUES TO HAVE LOOSE, BROWN STOOLS. PATIENT SUPPOSED TO HAVE SWALLOW EVAL THIS AM BUT POSTPONED AT THIS TIME DUE TO MENTAL STATUS AND INCREASED O2 NEEDS. SMITH DRAINING DARK ZIGGY/ GREEN COLORED URINE. R GROIN PACEMAKER SITE WNL- NO BLEEDING, BRUISING, HEMATOMA NOTED. SITE SOFT TO PALPATION. WOUND TO COCCYX CLEAN AND DRY AT THIS TIME. CALAZIME CREAM IS BEING APPLIED. BRUISES NOTED TO BUES AND ABDOMEN. SKIN OVERALL PALE IN COLOR. PATIENT RECEIVING VANCO AND ZOSYN FOR ANTIBIOTICS. BED LOW, CALL LIGHT IN REACH. WILL CONTINUE TO MONITOR PATIENT FREQUENTLY THROUGHOUT SHIFT.
--- NOTE | 2019-07-25 08:15 | NUR ---
DR. ALVARES INFORMED ABOUT PATIENT'S INCREASED O2 NEEDS THROUGHOUT NIGHT. INFORMED THAT PATIENT KIDNEY LABS INCREASING AND PLATELETS DECREASED AT 61. INFORMED THAT WBC INCREASED TO 23.12. DR. ALVARES STATED HE WILL TALK TO DR. SUMMERS AND PATIENT FAMILY WHEN THEY GET HERE ABOUT PATIENT CARE.
--- NOTE | 2019-07-25 10:57 | NUR ---
PATIENT'S SON, ERICK, AND DAUGHTER IN LAW IN PATIENT ROOM. DR. ALVARES AND PRIMARY NURSE TO ROOM TO UPDATE ON PATIENT STATUS. FAMILY INFORMED THAT WORK OF BREATHING HAS INCREASED T/O NIGHT, CHEST XRAY APPEARS WORSENED AND THAT PATIENT MENTATION SEEMS WORSENED FROM YESTERDAY. ERICK STATED THAT MORE FAMILY IS SUPPOSED TO ARRIVE TODAY AND THAT THEY WILL SPEAK TO EACH OTHER AND DETERMINE WHETHER OR NOT PATIENT WOULD LIKE TO CONTINUE WITH LIMITED CODE STATUS AND BE REINTUBATED IF NEEDED, OR IF PATIENT WOULD LIKE TO TAKE MORE OF A COMFORT CARE APPROACH. DR. ALVARES STATED FOR FAMILY TO LET STAFF KNOW WHEN THEY HAVE COME TO A DECISION. FAMILY STATES THEY HAVE NO MORE QUESTIONS AT THIS TIME.
--- NOTE | 2019-07-25 12:00 | NUR ---
PATIENT RESTING QUIETLY IN BED. NO SIGNS OF PAIN OR DISCOMFORT. PATIENT HAS BEEN RECEIVING PRN FENTANYL FOR RESTLESSNESS/ GRIMACING/ SIGNS OF PAIN. PATIENT AFEBRILE. PATIENT SATTING 90% AND GREATER ON BIPAP 12/10, RATE OF 12, 60% FIO2. LUNGS COARSE THROUGHOUT. PATIENT PACED, HR IN THE 80S. BP STABLE ON LEVOPHED AT 3 MCG/ MINUTE. VASOPRESSIN REMAINS AT 0.04 UNITS/ MINUTE. BLOOD SUGAR 108; NO COVERAGE GIVEN. FAMILY AT BEDSIDE. NO OTHER ACUTE CHANGES TO NOTE ON AT THIS TIME. WILL CONTINUE TO MONITOR.
--- NOTE | 2019-07-25 14:30 | NUR ---
DR. ALVARES INFORMED THAT PATIENT CONTINUES TO BE AGITATED AND RESTLESS DESPITE RECEIVING PRN FENTANYL Q1H. INFORMED THAT FAMILY IS ALSO BECOMING ANXIOUS AND HAS NOT YET MADE A DECISION REGARDING WHETHER OR NOT TO MAKE COMFORT CARE. STATED TO ORDER PRN ATIVAN AND CONTACT PALLIATIVE CARE TO COME AND SPEAK WITH FAMILY AND SEE PATIENT.
--- NOTE | 2019-07-25 15:17 | NUR ---
Review of comfort measures with family. pt declining high oxygen need and aggitation pt needing pressors. multiple family memeber att bedside they have had extensive conversation. Family is ready to accept comfort care for pt. they feel prolonging his life would just prolong his suffering. PT has stopped eating and has been expressing great moral distress at not being with his before this event. Worsening aggitation and ventilatory stress today may indicate some terminal aggitation. Some more family coming tonight but they do not want to wait offered to keep all care going as long as we could but they are ready. Will slowly titrate off pressors and increase medication for air hunger and respitory stress.
--- NOTE | 2019-07-25 17:45 | NUR ---
PATIENT'S TEMPORARY PACEMAKER TURNED OFF. FAMILY IN ROOM. PATIENT MEDICATED FOR PAIN AND ANXIETY. WILL CONTINUE TO MONITOR.
--- NOTE | 2019-07-25 18:25 | NUR ---
FIO2 DECREASED TO 60% FROM 70% ON BIPAP. FAMILY SITTING ALL AROUND. PATIENT APPEARS WITHOUT PAIN, DISTRESS OR DISCOMFORT. WILL CONTINUE TO MONITOR.
--- NOTE | 2019-07-25 18:50 | NUR ---
FIO2 DECREASED FROM 60% TO 50%.
--- NOTE | 2019-07-25 19:15 | NUR ---
PT ON BIPAP. RESTING SMITH IN PLACE PACEMAKER TURN OFF. HR IN 40S. ON COMFORT CARE.
--- NOTE | 2019-07-25 19:20 | NUR ---
SHIFT SUMMARY PATIENT CHANGED TO COMFORT CARE AROUND 1515 AFTER EXTENSIVE FAMILY CONVERSATION WITH EACH OTHER AFTER SPEAKING TO DR. ALVARES, DR. SUMMERS AND PALLIATIVE CARE NURSE. PATIENT HAS BEEN GETTING PRN MEDICATIONS FOR SIGNS OF PAIN AND AGITATION. PRN ATIVAN HAS SEEMED TO HELP THE MOST FOR PATIENT THUS FAR. PRESSORS HAVE BEEN TURNED OFF. TEMPORARY PACEMAKER HAS BEEN TURNED OFF. FIO2 ON BIPAP HAS BEEN TURNED DOWN TO 40%. FAMILY INFORMED THAT BIPAP CAN BE LIFE PROLONGING AND DECISION MADE TO CHANGE PATIENT TO NC SHORTLY. MANAGER OPERATIONS RESEARCH RN INFORMED. PATIENT DID NOT HAVE ANY BMS THIS SHIFT. SMITH REMAINS IN PLACE FOR COMFORT. PATIENT HAS BEEN REPOSITIONED Q2H AND PRN. MANY FAMILY MEMBERS PRESENT IN ROOM AT THIS TIME. PATIENT APPEARS COMFORTABLE AT THIS TIME. REPORT GIVEN TO MANAGER OPERATIONS RESEARCH NURSE.
--- NOTE | 2019-07-25 20:09 | NUR ---
REMOVED BIPAP PLACE ON NC, ORAL CARE DONE.
--- NOTE | 2019-07-25 21:56 | NUR ---
PT ASYSTOLE AT WITH NO PULSE AT 2143. NO HEART SOUND, CONFIRMED BY CHARGE NURSE SMOOTH. PT TO BE PICKED UP BY [facility].
--- NOTE | 2019-07-25 22:12 | NUR ---
DR. RAMIREZ AND DONAL ABDULLAHI NOTIFIED OF TIME OF
== END 2019-07-25 21:43 | DRG 308 ==
LOC: ER 04:26 → ICUW 05:59
PROVIDERS: Emergency Medicine; Internal Medicine; Internal Medicine Critical Care Medicine; Internal Medicine Pulmonary Disease; ADMIT Internal Medicine
PROC: 5A1223Z Performance of Cardiac Pacing, Continuous (ICD-10-PCS; principal; 2019-07-21)
PROC: 02HV33Z Insertion of Infusion Device into Superior Vena Cava, Percutaneous Approach (ICD-10-PCS; 2019-07-21)
PROC: 3E043XZ Introduction of Vasopressor into Central Vein, Percutaneous Approach (ICD-10-PCS; 2019-07-21)
PROC: 0BH17EZ Insertion of Endotracheal Airway into Trachea, Via Natural or Artificial Opening (ICD-10-PCS; 2019-07-23)
PROC: 5A1945Z Respiratory Ventilation, 24-96 Consecutive Hours (ICD-10-PCS; 2019-07-23)
DX: I44.2 Atrioventricular block, complete (principal); J96.21 Acute and chronic respiratory failure with hypoxia; A41.9 Sepsis, unspecified organism; J15.6 Pneumonia due to other Gram-negative bacteria; I13.0 Hypertensive heart and chronic kidney disease with heart failure and stage 1 through stage 4 chronic kidney disease, or unspecified chronic kidney disease; N17.9 Acute kidney failure, unspecified; I50.42 Chronic combined systolic (congestive) and diastolic (congestive) heart failure; I42.9 Cardiomyopathy, unspecified; Z51.5 Encounter for palliative care; I48.20 Chronic atrial fibrillation, unspecified; I25.10 Atherosclerotic heart disease of native coronary artery without angina pectoris; I25.2 Old myocardial infarction; G62.9 Polyneuropathy, unspecified; E03.9 Hypothyroidism, unspecified; Z79.01 Long term (current) use of anticoagulants; E88.09 Other disorders of plasma-protein metabolism, not elsewhere classified; I27.20 Pulmonary hypertension, unspecified; E16.2 Hypoglycemia, unspecified; N18.3 Chronic kidney disease, stage 3 (moderate); I50.9 Heart failure, unspecified; R57.0 Cardiogenic shock; D63.1 Anemia in chronic kidney disease
CPT/HCPCS: 31500; 31720; 33210; 36415; 36556; 36600; 51702; 71045; 76700; 76937; 80047; 80053; 80202; 81001; 82330; 82533; 82550; 82803; 82947; 83605; 83735; 83880; 84100; 84484; 85014; 85025; 85379; 85610; 85730; 87040; 87070; 87077; 87106; 87186; 87205; 87493; 93005; 93010; 93308; 93321; 94002; 94003; 94660; 96361; 96365; 96366; 96375; 96376; 99152; 99153; 99285-25; C1751; C1894; C9113; J0282; J0461; J1610; J1644; J1720; J1815; J1940; J1956; J2060; J2270; J2405; J2543; J2704; J3010; J3370; J7030; J7040; J7050; J7060; J7799; P9046